=== PATIENT | female | born 1950 | race Caucasian/White ===

== ENCOUNTER 2020-01-17 09:58 | Emergency (ER) | payer MEDICARE, OTHER, SELFPAY ==
--- NOTE | 2020-01-17 | CT_ITS ---
WS: [id number] CT HEAD TECHNIQUE: Noncontrast CT of the head obtained from the skullbase to the vertex. CLINICAL INFORMATION: STOKE LIKE SYMPTOMS COMPARISON: Multiple prior examinations including MRI October 31, 2014, , and CTA DLP: [address] scans at [facility] use at least one of these dose optimization techniques: automat ed exposure control; mA and/or kV adjustment per patient size (includes targeted exams where dose is matched to clinical indication); or iterative reconstruction. FINDINGS: No evidence of intracranial hemorrhage or mass effect. Ventricular system and basal cisterns are stone nt. Mild small vessel changes with mild parenchymal volume loss. No extra-axial fluid collections. No evidence of mass or mass effect. Normal martinez-white differentiation. Paranasal sinuses and mastoid air cells are well aerated. .Normal visualized soft tissues. CT/CT head wo con* [id number] IMPRESSION: 1. No evidence of intracranial hemorrhage or mass effect. 2. Normal martinez-white differentiation. 3. Mild small vessel changes. Mild parenchymal volume loss. 4. No acute intracranial findings. Notified Miri Quintero MD at 01/17/2020 10:19 AM.
[2020-01-17 10:05] VITALS: BP 169/78; PULSE 79; RESP 18; TEMP 36.8; O2SAT 100; BMI 22.6
[2020-01-17 10:30] VITALS: BP 150/64; PULSE 64; O2SAT 97
[2020-01-17 10:57] LABS: Basophils % 0.7 %; Eosinophils # 0.1 10^3/uL (0.0-0.8); Eosinophils % 1.3 %; Hematocrit 39.8 % (37.0-47.0); Lymphocytes # 1.1 10^3/uL (0.8-4.8); Mean Corpuscular HGB Conc 32.7 g/dL (30.0-36.0); Mean Corpuscular Hemoglobin 30.9 pg (28.0-34.0); Mean Corpuscular Volume 94.5 fL (81-99); Mean Platelet Volume 10.5 fL (7.4-10.4); Monocytes # 0.5 10^3/uL (0.2-0.9); Monocytes % 11.2 %; Neutrophils # 2.76 10^3/uL (1.8-7.7); Neutrophils % 61.6 %; Nucleated Red Blood Cells % 0 %; Platelet Count 233 10^3/cmm (130-400); Red Blood Count 4.21 10^6/uL (4.1-5.3); Red Cell Distribution Width 12.9 % (12.1-15.1); White Blood Count 4.5 10^3/uL (4.0-10.0)
[2020-01-17 11:41] LABS: Erythrocyte Sedimentation Rate 16 mm/hr (0-15)
--- NOTE | 2020-01-17 11:44 | W.ED.HA ---
HPI - Headache General: Chief Complaint: Headache Stated Complaint: STROKE SYMPTOMS Time Seen by Provider: 01/17/20 10:12 History of Present Illness: HPI Narrative: This patient is a 69-year-old female who presents today with complaints of a sudden and strange feeling on the left side of her scalp. She said she was bending over when it started. It started above her ear and worked its way back to almost the center of the back of her head. Since that time she is developed some strange feeling more diffusely in that same area and a little bit of numbness over the left cheek anteriorly. No visual problems. No chest pain. No focal weakness. No speech deficits. No trouble swallowing. No trouble with her balance. She has a history of by possible aneurysm that is been followed for some time. She has never had a stroke. Aneurysms do run in her family. MD elicited complaint: headache Onset description: suddenly Location: left and other (Described in HPI) Severity: moderate Quality & Timing: other (A strange feeling) Exacerbating factors: none Relieving factors: nothing Context: occurred at rest Associated symptoms: Reports no associated symptoms; Deny chest pain, fever(s), malaise, nausea, rash or vomiting Review of Systems General: Reports: 10 or more systems reviewed and unremarkable except in HPI and below Const: Denies: fever(s), chills, fatigue or malaise Eyes: Denies: change in vision ENMT: Denies: odynophagia Card: Denies: chest pain or swelling of feet/ankles Resp: Denies: dyspnea, productive cough or non-productive cough GI: Denies: abdominal pain, nausea or vomiting : Denies: flank pain or difficulty voiding Musc: Denies: neck pain or back pain Skin/Breast: Denies: rash Neuro: Denies: headache(s), numbness in extremities or weakness in extremities [place]h/Lymph: Denies: easy bruising or easy bleeding Physical Exam Const: COMMON NORMALS: no acute distress, patient oriented x3, no limitations and alert GENERAL APPEARANCE: cooperative and comfortable HENMT: HEAD & SCALP: normal to inspection FACE & SINUS: normal facial exam Eye: GENERAL EYE: appearance normal, both eyes and all related structures Neck/C-Spine: COMMON NORMALS: supple, no meningeal signs and no JVD Chest: COMMONS NORMALS: normal inspection of the chest Resp: COMMON NORMALS: normal respiratory effort, No use of accessory muscles and clear to auscultation bilaterally AUSCULTATION: clear to auscultation bilaterally Cardio: COMMON NORMALS: no JVD, regular rate, regular rhythm and No murmurs present (Cardio) RATE: regular rate RHYTHM: regular rhythm GI: COMMON NORMALS: Normal to inspection, nondistended, normoactive bowel sounds present, Soft to palpation and non-tender INSPECTION: Yes normal to inspection AUSCULTATION: Yes normoactive bowel sounds PALPATION: Yes Soft to palpation Back/Pelvis: COMMON NORMALS: thoracic and lumbar spine normal to inspection Extremity: COMMON NORMALS: normal to inspection Neuro: COMMON NORMALS: patient oriented x3, moves all extremities, no focal motor deficits and no sensory deficits noted SENSORIUM/ORIENTATION: Yes alert MENINGEAL SIGNS: Yes no meningeal signs Psych: COMMON NORMALS: mental status grossly normal, cooperative and normal affect Skin: COMMON NORMALS: no rashes or lesions noted and turgor normal GENERAL SKIN EXAM: no rashes or lesions noted and turgor normal Course ED course: Completely normal neuro exam. CT was negative. 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 CT obviously does not show the aneurysm itself but also does not show any bleeding with in the 6-hour window. I think her symptoms are unlikely related to her aneurysm. She was feeling better at the time of discharge and will follow up with her primary care to determine whether further imaging is necessary. Vital Signs: Vital signs: Vital Signs Temperature 98.2 F 01/17/20 10:05 Pulse Rate 61 01/17/20 13:05 Respiratory Rate 18 01/17/20 13:05 Blood Pressure 102/62 01/17/20 13:05 Pulse Oximetry 94 01/17/20 13:05 MDM - Headache MDM Narrative: Medical decision making narrative: Doubt ruptured aneurysm but possible. Vasculitis such as temporal arteritis. Neuralgia such as occipital or trigeminal. Lab Data: Labs: Lab Results 01/17/20 01/17/20 01/17/20 Range/Units 10:49 10:49 10:49 WBC 4.5 (4.0-10.0) 10^3/ uL RBC 4.21 (4.1-5.3) 10^6/u L Hgb 13.0 (11.5-15.3) g/dL Hct 39.8 (37.0-47.0) % MCV 94.5 (81-99) fL MCH 30.9 (28.0-34.0) pg MCHC 32.7 (30.0-36.0) g/dL RDW 12.9 (12.1-15.1) % Plt Count 233 (130-400) 10^3/c mm MPV 10.5 H (7.4-10.4) fL Neut % (Auto) 61.6 % Lymph % (Auto) 25.0 % [place] % (Auto) 11.2 % Eos % (Auto) 1.3 % Baso % (Auto) 0.7 % Neut # (Auto) 2.76 (1.8-7.7) 10^3/u L Lymph # (Auto) 1.1 (0.8-4.8) 10^3/u L [place] # (Auto) 0.5 (0.2-0.9) 10^3/u L Eos # (Auto) 0.1 (0.0-0.8) 10^3/u L Baso # (Auto) 0.0 (0.0-0.1) 10^3/u L Nucleated RBC % (a uto) 0 % Nucleated RBCs # 0.0 /100WBC ESR 16 H (0-15) mm/hr Sodium Cancelled Potassium Cancelled Chloride Cancelled Carbon Dioxide Cancelled Anion Gap Cancelled BUN Cancelled Creatinine Cancelled GFR Calculation Cancelled Glucose Cancelled Calculated Osmolal ity Cancelled Calcium Cancelled Total Bilirubin Cancelled AST Cancelled ALT Cancelled Alkaline Phosphata se Cancelled C-Reactive Protein Cancelled Total Protein Cancelled Albumin Cancelled Globulin Cancelled 01/17/20 Range/Units 11:46 WBC (4.0-10.0) 10^3/ uL RBC (4.1-5.3) 10^6/u L Hgb (11.5-15.3) g/dL Hct (37.0-47.0) % MCV (81-99) fL MCH (28.0-34.0) pg MCHC (30.0-36.0) g/dL RDW (12.1-15.1) % Plt Count (130-400) 10^3/c mm MPV (7.4-10.4) fL Neut % (Auto) % Lymph % (Auto) % [place] % (Auto) % Eos % (Auto) % Baso % (Auto) % Neut # (Auto) (1.8-7.7) 10^3/u L Lymph # (Auto) (0.8-4.8) 10^3/u L [place] # (Auto) (0.2-0.9) 10^3/u L Eos # (Auto) (0.0-0.8) 10^3/u L Baso # (Auto) (0.0-0.1) 10^3/u L Nucleated RBC % (a uto) % Nucleated RBCs # /100WBC ESR (0-15) mm/hr Sodium 137 Potassium 4.5 Chloride 102 Carbon Dioxide 29 Anion Gap 10.5 BUN 12 Creatinine 0.7 GFR Calculation 82.7 L Glucose 126 H Calculated Osmolal ity 282 L Calcium 8.8 Total Bilirubin 0.2 AST 26 ALT 20 Alkaline Phosphata se 45 C-Reactive Protein 0.3 Total Protein 6.9 Albumin 4.3 Globulin 2.6 Discharge Plan Discharge Patient Disposition: Home Clinical Impression: Headache Qualifiers: Headache type: unspecified Headache chronicity pattern: unspecified pattern Intractability: not intractable Qualified Code(s): R51 - Headache Condition: Stable Prescriptions: No Action atorvastatin 10 mg tablet 15 mg PO BEDTIME RF: 0 hydrochlorothiazide 12.5 mg capsule 12.5 mg PO DAILY RF: 0 olmesartan 40 mg tablet 40 mg PO DAILY RF: 0 aspirin 81 mg Tablet,Chewable 162 mg PO DAILY RF: 0 Centrum 18-400 mg-mcg Tablet 1 tab PO DAILY RF: 0 Discharge Orders: Discharge Order (Routine); Ordered 01/17/20 Ordered By: Miri Quintero Referrals: Everton More MD [Primary Care Provider] - Discharge Diet: Usual diet Discharge Activity: Resume usual activity Patient Instructions: Acute Headache (ED) Activity Restrictions/Additional Instructions: Rest, follow-up with Dr. More regarding any further testing. Return to the ED if any new or worse symptoms. Discharge Date/Time: 01/17/20 13:05 Coding Level of Care Code ED Accounts Payable Coordinator for Chg Fwd Exam Comprehensive
[2020-01-17 12:16] LABS: Alanine Aminotransferase 20 U/L (0-33); Albumin Level 4.3 g/dL (3.5-5.2); Alkaline Phosphatase 45 IU/L (35-105); Anion Gap 10.5 (5-19); Aspartate Amino Transferase 26 U/L (0-32); Blood Urea Nitrogen 12 mg/dL (8-23); C Reactive Protein 0.3 mg/L (0.0-4.9); Calcium 8.8 mg/dL (8.5-10.5); Carbon Dioxide 29 mmol/L (22-29); Chloride 102 mmol/L (98-107); Globulin 2.6 g/dL (1.3-4.6); Glomerular Filtration Rate 82.7 mL/min (90-130); Glucose 126 mg/dL (65-115); Osmolality Calculated 282 mOsm/kg (285-295); Potassium 4.5 mmol/L (3.5-5.1); Sodium 137 mmol/L (136-145); Total Bilirubin 0.2 mg/dL (0.15-1.2); Total Protein 6.9 g/dL (6.6-8.7)
[2020-01-17 13:05] VITALS: BP 102/62; PULSE 61; RESP 18; O2SAT 94
== END 2020-01-17 13:05 | disposition home or self-care (01) ==
PROVIDERS: Emergency Provider Emergency Medicine; PCP Family Medicine
DX: R51 Headache (principal); Z79.82 Long term (current) use of aspirin
CPT/HCPCS: 12345; 36415; 70450; 80053; 85025; 85651; 86140; 99282; 99283

== ENCOUNTER → 2020-12-07 17:04 | Outpatient (BNVA) | payer MEDICARE, OTHER, SELFPAY | PROVIDERS: PCP Family Medicine; Visit Provider Nurse Practitioner | DX: Z20.822 Contact with and (suspected) exposure to COVID-19 (principal) | CPT/HCPCS: 87635 ==

== ENCOUNTER 2021-03-12 14:00 | Outpatient (CLI) | payer MEDICARE, OTHER, SELFPAY ==
--- NOTE | 2021-03-12 14:21 | XR_ITS ---
WS: [id number] DEXA (DUAL ENERGY X-RAY ABSORPTIOMETRY) Bone mineral density was performed using a [employer] machine. HISTORY: POST MENOPAUSAL COMPARISON: 12/18/2018 Lumbar spine BMD (L1-L4): 0.956 g/cm2 T score: -1.9 Z score: 0.2 Total hip BMD: Left: 0.750 g/cm2. T score: -2.0 Z score: -0.2 Right: 0.746 g/cm2. T score: -2.1 Z score: -0.2 10 year probability of a major osteoporotic fracture is 25%. Compared to the prior study from 12/18/2018. Lumbar spine bone mineral density has decreased by 1.7%. Bilateral hips bone mineral density has decreased by 1.4%. XR/XR DEXA axial skeleton* [id number] IMPRESSION: OSTEOPENIA based upon the WHO classification for females. No significant change in bone mineral density since the prior examination.
== END 2021-03-12 14:01 | disposition home or self-care (01) ==
PROVIDERS: PCP Family Medicine; Visit Provider Family Medicine
DX: Z78.0 Asymptomatic menopausal state (principal); M85.80 Other specified disorders of bone density and structure, unspecified site
CPT/HCPCS: 77080

== ENCOUNTER → 2022-07-26 10:53 | Outpatient (BNVA) | payer MEDICARE, OTHER, SELFPAY | PROVIDERS: PCP Family Medicine; Visit Provider Podiatrist Foot & Ankle Surgery | DX: G57.52 Tarsal tunnel syndrome, left lower limb (principal); L60.3 Nail dystrophy | CPT/HCPCS: 99203 ==

== ENCOUNTER → 2022-08-23 11:21 | Outpatient (BNVA) | payer MEDICARE, OTHER, SELFPAY | PROVIDERS: PCP Family Medicine; Visit Provider Podiatrist Foot & Ankle Surgery | DX: B35.1 Tinea unguium (principal); G57.52 Tarsal tunnel syndrome, left lower limb; L60.3 Nail dystrophy | CPT/HCPCS: 99213 ==

== ENCOUNTER → 2023-01-12 11:15 | Outpatient (BNVA) | payer MEDICARE, OTHER, SELFPAY | PROVIDERS: PCP Family Medicine; Visit Provider Podiatrist Foot & Ankle Surgery | DX: G57.52 Tarsal tunnel syndrome, left lower limb; L60.3 Nail dystrophy; B35.1 Tinea unguium | CPT/HCPCS: 99213 ==

== ENCOUNTER 2023-02-07 13:27 | Outpatient (CLI) | payer MEDICARE, OTHER, SELFPAY ==
--- NOTE | 2023-02-07 13:40 | XR_ITS ---
WS: [id number] SCREENING DEXA SCAN [employer] CLINICAL INFORMATION: POSTMENOPAUSAL COMPARISON: 2020 FINDINGS: The L1-L4 bone mineral density measures 1.0. This corresponds to a T score score of -1.3 and Z score of 0.8. Left femoral neck bone mineral density measures 0.8. This corresponds to a T score of -1.7 and Z scor e of 0.2. Right femoral neck bone mineral density measures 0.8. This corresponds to a T score -1.9of and Z scor e of 0.0. Mean femoral neck bone mineral density measures 0.8. This corresponds to a T score of -1.8 and Z scor e of 0.1. IMPRESSION: Osteopenia lumbar spine. Osteopenia femoral necks. Patient's FRAX calculated 10 year probability for major osteoporotic fracture is 21.6% and osteoporot ic hip fracture is 6.0%. Bone mineral density in the lumbar spine has increased 7.2% since 2020. Bone mineral density in the femoral necks has increased 4.0% since 2020.
== END 2023-02-07 13:28 | disposition home or self-care (01) ==
PROVIDERS: PCP Family Medicine; Visit Provider Family Medicine
DX: Z78.0 Asymptomatic menopausal state (principal); M85.89 Other specified disorders of bone density and structure, multiple sites
CPT/HCPCS: 77080

== ENCOUNTER → 2023-07-04 09:29 | Outpatient (BNVA) | payer MEDICARE, OTHER, SELFPAY | PROVIDERS: PCP Family Medicine; Visit Provider Podiatrist Foot & Ankle Surgery | DX: B35.3 Tinea pedis (principal); G57.52 Tarsal tunnel syndrome, left lower limb; L60.3 Nail dystrophy; B35.1 Tinea unguium | CPT/HCPCS: 99213 ==

== ENCOUNTER 2023-08-02 20:00 | Outpatient (CLI) | payer MEDICARE, OTHER, SELFPAY | END 2023-08-02 20:01 | disposition home or self-care (01) | PROVIDERS: PCP Family Medicine; Visit Provider Family Medicine | DX: G47.10 Hypersomnia, unspecified (principal); R06.83 Snoring | CPT/HCPCS: 95810 ==

== ENCOUNTER 2024-08-13 07:33 | Outpatient (CLI) | payer MEDICARE, SELFPAY ==
--- NOTE | 2024-08-13 | XRR_ITS ---
PROCEDURE INFORMATION: Exam: XR Cervical Spine Exam date and time: 08/13/2024 2:46 PM Age: 74 years old Clinical indication: Radicular pain (radiculopathy); Cervical region; Additional info: Cervical radiculopathy TECHNIQUE: Imaging protocol: Radiologic exam of the cervical spine. Views: 2 or 3 views. COMPARISON: CT head wo con* [id number] 01/17/2020 10:02 AM FINDINGS: Bones/joints: The vertebral body heights and alignment are maintained. There is [id number] degenerative disc disease at C4-C5 and C5-C6. Soft tissues: Unremarkable. XR/XR cervical spine 3V* [id number] IMPRESSION: [id number] degenerative disc disease at C4-C5 and C5-C6.
--- NOTE | 2024-08-13 | XRR_ITS ---
PROCEDURE INFORMATION: Exam: XR Left Hand Exam date and time: 08/13/2024 2:46 PM Age: 74 years old Clinical indication: Pain; Hand; Left; Additional info: Pain in left hand TECHNIQUE: Imaging protocol: Radiologic exam of the left hand. Views: 3 or more views. COMPARISON: CR XR hand LT 2V [id number] 07/18/2023 11:35 AM FINDINGS: Bones/joints: There is no fracture identified. There is osteopenia present. There is mild osteoarthritis affecting the DIP joints. Soft tissues: Normal. XR/XR hand LT min 3V* [id number] IMPRESSION: Mild osteoarthritis affecting the DIP joints.
== END 2024-08-13 07:34 | disposition home or self-care (01) ==
PROVIDERS: PCP Family Medicine; Visit Provider Family Medicine
DX: B35.1 Tinea unguium (principal); L60.0 Ingrowing nail
CPT/HCPCS: 99213

== ENCOUNTER 2024-09-03 11:25 | Outpatient (CLI) | payer MEDICARE, OTHER, SELFPAY ==
--- NOTE | 2024-09-03 11:38 | MR_ITS ---
WS: [id number] MRA CAROTID WITHOUT AND WITH GADOLINIUM ENHANCEMENT TECHNIQUE: Axial 2-D TOF and gadolinium bolus images obtained with axial images and axial, sagittal, and coronal 2-D reformatted images. CLINICAL INFORMATION: CEREBRAL ARTERY ANEURYSM COMPARISON: 2014 FINDINGS: RIGHT: RIGHT common carotid artery is patent. No significant RIGHT ICA stenosis. RIGHT ICA is patent to the skull base. LEFT: LEFT common carotid artery is patent. No significant LEFT ICA stenosis. LEFT ICA is patent to the skull base. Tortuous LEFT cervical ICA at the skull base. LEFT dominant vertebral artery. Smaller but patent RIGHT vertebral artery. Proximal subclavian arteries are patent. MR/MR angio neck w con* [id number] IMPRESSION: 1. Normal neck MRA 2. No significant cervical ICA stenosis. Both ICAs are patent to the skull bas e. 3. LEFT dominant vertebral artery. Both vertebral arteries are patent.
--- NOTE | 2024-09-03 11:38 | MR_ITS ---
WS: [id number] MRA HEAD TECHNIQUE: Axial 3-D TOF images obtained with axial images and axial, sagittal, and coronal 2-D reformatted images. CLINICAL INFORMATION: CEREBRAL ARTERY ANEURYSM COMPARISON: MRa 2014 FINDINGS: Tiny aneurysm or infundibulum dorsal RIGHT supraclinoid ICA measuring 3 mm is unchanged since 2015 Distal vertebral arteries are patent. Basilar artery is patent. Normal vascularity to the [employer] territories bilaterally. Both ICAs are patent at the skull base. Normal vascularity to the NOE and MCA territories bilaterally. No evidence of proximal flow-limiting stenosis. MR/MR angio head wo con [id number] IMPRESSION: 1. Tiny aneurysm or infundibulum RIGHT supraclinoid ICA measuring 3 mm is unch anged since 2014. 2. Otherwise normal intracranial MRA.
[2024-09-03] MEDS: gadobenate dimeglumine 20 mL vial 11 ML IV (12:18)
== END 2024-09-03 11:26 | disposition home or self-care (01) ==
PROVIDERS: PCP Family Medicine; Visit Provider Family Medicine
DX: I67.1 Cerebral aneurysm, nonruptured (principal); R93.0 Abnormal findings on diagnostic imaging of skull and head, not elsewhere classified
CPT/HCPCS: 70544; 70548; A9577

== ENCOUNTER → 2024-09-13 09:13 | Outpatient (BNVA) | payer MEDICARE, OTHER, SELFPAY | PROVIDERS: PCP Family Medicine; Visit Provider Podiatrist Foot & Ankle Surgery | DX: L60.0 Ingrowing nail (principal); M79.672 Pain in left foot; B35.1 Tinea unguium | CPT/HCPCS: 11750; J9999 ==

== ENCOUNTER 2025-01-24 12:52 | Outpatient (RCR) | payer MEDICARE, OTHER, SELFPAY | END 2025-02-19 23:59 | disposition home or self-care (01) | LOC: SOT 12:52 | PROVIDERS: Visit Provider Family Medicine | DX: M79.642 Pain in left hand (principal) | CPT/HCPCS: 97022; 97110; 97140; 97165; 97530 ==

== ENCOUNTER → 2025-02-02 17:11 | Outpatient (BNVA) | payer MEDICARE, OTHER, SELFPAY | PROVIDERS: Visit Provider Emergency Medicine | DX: R39.9 Unspecified symptoms and signs involving the genitourinary system (principal) | CPT/HCPCS: 81000 ==

== ENCOUNTER → 2025-02-08 12:38 | Outpatient (BNVA) | payer MEDICARE, OTHER, SELFPAY | PROVIDERS: Visit Provider Emergency Medicine | DX: R39.9 Unspecified symptoms and signs involving the genitourinary system (principal) | CPT/HCPCS: 81000; 87086 ==